=== PATIENT | male | born 1950 | race Caucasian/White ===

== ENCOUNTER 2019-09-01 16:19 | Inpatient (IN) | payer MEDICARE, MEDICAID ==
[~2019-09-01] VITALS: Ht 162.6 cm; Wt 72.6 kg
[2019-09-01 16:30] VITALS: BP 132/70
[2019-09-01] MEDS ORDERED: HYPROMELLOSE 0.5% 15 ML OPHTHALMIC SOLUTION OU PRN (18:30)
[2019-09-01] MEDS: LACTULOSE 20 GM/30 ML SOLUTION UDCUP PO SCH (21:29)
[2019-09-01] MEDS: PANTOPRAZOLE SODIUM 40 MG DR TABLET PO SCH (21:29)
[2019-09-01] MEDS: RIFAXIMIN 550 MG TABLET PO SCH (21:29)
[2019-09-01] MEDS: FUROSEMIDE 40 MG TABLET PO SCH (21:29)
[2019-09-01] MEDS ORDERED: ACETAMINOPHEN 325 MG TABLET PO PRN (22:30)
[2019-09-01 23:19] VITALS: BP 132/70
[2019-09-02] VITALS: BP 131/77
[2019-09-02 08:05] VITALS: BP 140/72
[2019-09-02 09:30] LABS: BASOPHILS % (AUTO) 1.1 % (0.0-2.0); EOSINOPHILS % (AUTO) 1.8 % (1.0-6.0); HEMATOCRIT 35.9 % (41-53); HEMOGLOBIN 11.8 g/dL (13.5-17.5); LYMPHOCYTES # (AUTO) 0.5 K/uL (1.0-4.8); MEAN CORPUSCULAR HEMOGLOBIN 29.2 pg (26.0-34.0); MEAN CORPUSCULAR HGB CONC 32.7 G/dL (31.0-37.0); MEAN CORPUSCULAR VOLUME 89 fL (80-100); MONOCYTES # (AUTO) 0.4 K/uL (0.1-1.0); MONOCYTES % (AUTO) 5.8 % (2.0-9.0); NEUTROPHILS # (AUTO) 5.3 K/uL (1.8-7.7); NEUTROPHILS % (AUTO) 83.3 % (40.0-70.0); PLATELET COUNT (AUTO) 213 K/uL (150-450); RED BLOOD CELL COUNT(AUTO) 4.02 MIL/uL (4.50-5.90); RED CELL DISTRIBUTION WIDTH 21.5 % (11.5-14.5)
[2019-09-02 09:51] LABS: ALANINE AMINOTRANSFERASE 22 U/L (12-78); ALBUMIN 2.5 g/dL (3.4-5.0); ALKALINE PHOSPHATASE 122 U/L (46-116); ANION GAP 9 mmol/L (8-16); ASPARTATE AMINOTRANSFERASE 24 U/L (15-37); BILIRUBIN,TOTAL 1.1 mg/dL (0.1-1.0); CALCIUM, TOTAL 8.6 mg/dL (8.8-10.5); CARBON DIOXIDE 27 mmol/L (22-29); CHLORIDE 108 mmol/L (98-107); GLUCOSE,RANDOM 102 mg/dL (70-110); POTASSIUM 3.6 mmol/L (3.5-5.1); SODIUM SERUM 144 mmol/L (136-145); TOTAL PROTEIN, SERUM 7.7 g/dL (6.4-8.2); UREA NITROGEN, BLOOD 13 mg/dL (7-18)
[2019-09-02 09:55] LABS: GLOMERULAR FILTR. RATE CALC > 60 mL/min (>60)
[2019-09-02] MEDS: RIFAXIMIN 550 MG TABLET PO SCH ×2 (10:48→21:35)
[2019-09-02] MEDS: FUROSEMIDE 40 MG TABLET PO SCH ×2 (10:48→21:39)
[2019-09-02] MEDS: PANTOPRAZOLE SODIUM 40 MG DR TABLET PO SCH ×2 (10:49→21:39)
[2019-09-02] MEDS: LACTULOSE 20 GM/30 ML SOLUTION UDCUP PO SCH ×3 (10:54→21:39)
[2019-09-02] MEDS: FOLIC ACID 1 MG TABLET PO SCH (11:20)
[2019-09-02] MEDS: THIAMINE HCL 100 MG TABLET PO SCH (11:20)
[2019-09-02] MEDS: POTASSIUM CHLORIDE 10 MEQ ER TABLET PO SCH (11:20)
[2019-09-02] MEDS: SPIRONOLACTONE 50 MG TABLET PO SCH (11:21)
[2019-09-02 15:00] VITALS: BP 145/74
[2019-09-02 21:34] VITALS: BP 141/76
[2019-09-03 01:08] VITALS: BP 141/77
[2019-09-03 07:30] VITALS: BP 122/59
[2019-09-03] MEDS: RIFAXIMIN 550 MG TABLET PO SCH ×2 (08:41→20:16)
[2019-09-03] MEDS: FUROSEMIDE 40 MG TABLET PO SCH ×2 (08:41→20:16)
[2019-09-03] MEDS: POTASSIUM CHLORIDE 10 MEQ ER TABLET PO SCH (08:41)
[2019-09-03] MEDS: SPIRONOLACTONE 50 MG TABLET PO SCH (08:41)
[2019-09-03] MEDS: LACTULOSE 20 GM/30 ML SOLUTION UDCUP PO SCH ×3 (08:41→20:16)
[2019-09-03] MEDS: FOLIC ACID 1 MG TABLET PO SCH (08:41)
[2019-09-03] MEDS: PANTOPRAZOLE SODIUM 40 MG DR TABLET PO SCH ×2 (08:41→20:16)
[2019-09-03] MEDS: THIAMINE HCL 100 MG TABLET PO SCH (08:41)
[2019-09-03 15:15] VITALS: BP 137/83
[2019-09-03 16:05] VITALS: BP 137/83
[2019-09-03 20:15] VITALS: BP 140/76
[2019-09-04] VITALS: BP 122/80
[2019-09-04 07:30] VITALS: BP 143/75
[2019-09-04] MEDS: THIAMINE HCL 100 MG TABLET PO SCH (07:53)
[2019-09-04] MEDS: POTASSIUM CHLORIDE 10 MEQ ER TABLET PO SCH (07:53)
[2019-09-04] MEDS: FUROSEMIDE 40 MG TABLET PO SCH ×2 (07:53→20:40)
[2019-09-04] MEDS: RIFAXIMIN 550 MG TABLET PO SCH ×2 (07:53→20:39)
[2019-09-04] MEDS: PANTOPRAZOLE SODIUM 40 MG DR TABLET PO SCH ×2 (07:53→20:39)
[2019-09-04] MEDS: FOLIC ACID 1 MG TABLET PO SCH (07:53)
[2019-09-04] MEDS: LACTULOSE 20 GM/30 ML SOLUTION UDCUP PO SCH ×3 (07:54→20:40)
[2019-09-04] MEDS: SPIRONOLACTONE 50 MG TABLET PO SCH (07:54)
[2019-09-04 16:05] VITALS: BP 150/77
[2019-09-04] MEDS: BENZOCAINE 10% 7 GM GEL TP SCH ×2 (16:17→20:39)
[2019-09-05 00:57] VITALS: BP 148/82
[2019-09-05 08:00] VITALS: BP 134/69
[2019-09-05] MEDS: THIAMINE HCL 100 MG TABLET PO SCH (09:00)
[2019-09-05] MEDS: FOLIC ACID 1 MG TABLET PO SCH (09:00)
[2019-09-05] MEDS: POTASSIUM CHLORIDE 10 MEQ ER TABLET PO SCH (09:00)
[2019-09-05] MEDS: LACTULOSE 20 GM/30 ML SOLUTION UDCUP PO SCH ×3 (09:00→20:09)
[2019-09-05] MEDS: PANTOPRAZOLE SODIUM 40 MG DR TABLET PO SCH ×2 (09:01→20:09)
[2019-09-05] MEDS: RIFAXIMIN 550 MG TABLET PO SCH ×2 (09:01→20:09)
[2019-09-05] MEDS: SPIRONOLACTONE 50 MG TABLET PO SCH (09:01)
[2019-09-05] MEDS: FUROSEMIDE 40 MG TABLET PO SCH ×2 (09:02→20:09)
[2019-09-05] MEDS: BENZOCAINE 10% 7 GM GEL TP SCH ×3 (09:02→21:13)
[2019-09-05 16:00] VITALS: BP 138/85
[2019-09-05] MEDS ORDERED: TAMSULOSIN HCL 0.4 MG CAPSULE PO SCH (21:00)
[2019-09-05] MEDS ORDERED: ASPI-728 PO (23:17)
[2019-09-05] MEDS ORDERED: FURO40 PO (23:29)
[2019-09-05] MEDS ORDERED: KDUR10 PO (23:30)
[2019-09-05] MEDS ORDERED: CARV6 PO (23:30)
[2019-09-05] MEDS ORDERED: LOVA-74 PO (23:32)
[2019-09-06] VITALS: BP 146/77
[2019-09-06 08:00] VITALS: BP 124/74
[2019-09-06] MEDS: SPIRONOLACTONE 50 MG TABLET PO SCH (08:23)
[2019-09-06] MEDS: RIFAXIMIN 550 MG TABLET PO SCH ×2 (08:23→20:41)
[2019-09-06] MEDS: THIAMINE HCL 100 MG TABLET PO SCH (08:23)
[2019-09-06] MEDS: PANTOPRAZOLE SODIUM 40 MG DR TABLET PO SCH ×2 (08:23→20:41)
[2019-09-06] MEDS: FOLIC ACID 1 MG TABLET PO SCH (08:23)
[2019-09-06] MEDS: FUROSEMIDE 40 MG TABLET PO SCH ×2 (08:23→20:41)
[2019-09-06] MEDS: POTASSIUM CHLORIDE 10 MEQ ER TABLET PO SCH (08:23)
[2019-09-06] MEDS: BENZOCAINE 10% 7 GM GEL TP SCH ×2 (08:24→17:23)
[2019-09-06] MEDS: LACTULOSE 20 GM/30 ML SOLUTION UDCUP PO SCH ×3 (08:24→20:40)
[2019-09-06] MEDS ORDERED: LOSA1TAB37 PO (12:33)
[2019-09-06] MEDS ORDERED: LOVA20 PO (12:33)
[2019-09-06 15:15] VITALS: BP 144/81
[2019-09-06 16:05] VITALS: BP 144/81
[2019-09-06] MEDS: CARBIDOPA/LEVODOPA 25-100 MG TABLET PO SCH ×2 (17:23→20:41)
[2019-09-06] MEDS: MELATONIN 3 MG TABLET PO PRN (20:41)
[2019-09-06] MEDS: TAMSULOSIN HCL 0.4 MG CAPSULE PO SCH (20:41)
[2019-09-07] VITALS: BP 125/72
[2019-09-07] MEDS: BENZOCAINE 10% 7 GM GEL TP SCH ×3 (05:54→16:50)
[2019-09-07 08:39] LABS: EOSINOPHILS % (AUTO) 2.1 % (1.0-6.0); HEMATOCRIT 37.3 % (41-53); HEMOGLOBIN 12.3 g/dL (13.5-17.5); LYMPHOCYTES # (AUTO) 0.5 K/uL (1.0-4.8); LYMPHOCYTES % (AUTO) 10.7 % (22.0-44.0); MEAN CORPUSCULAR HEMOGLOBIN 29.7 pg (26.0-34.0); MEAN CORPUSCULAR HGB CONC 32.9 G/dL (31.0-37.0); MEAN CORPUSCULAR VOLUME 90 fL (80-100); MONOCYTES # (AUTO) 0.4 K/uL (0.1-1.0); MONOCYTES % (AUTO) 7.6 % (2.0-9.0); NEUTROPHILS % (AUTO) 78.6 % (40.0-70.0); PLATELET COUNT (AUTO) 162 K/uL (150-450); RED BLOOD CELL COUNT(AUTO) 4.13 MIL/uL (4.50-5.90); RED CELL DISTRIBUTION WIDTH 23.5 % (11.5-14.5)
[2019-09-07 08:47] LABS: ANION GAP 13 mmol/L (8-16); CALCIUM, TOTAL 9.1 mg/dL (8.8-10.5); CARBON DIOXIDE 27 mmol/L (22-29); CHLORIDE 103 mmol/L (98-107); CREATININE 1.03 mg/dL (0.60-1.30); GLUCOSE,RANDOM 100 mg/dL (70-110); SODIUM SERUM 143 mmol/L (136-145); UREA NITROGEN, BLOOD 15 mg/dL (7-18)
[2019-09-07 08:49] LABS: GLOMERULAR FILTR. RATE CALC > 60 mL/min (>60)
[2019-09-07] MEDS ORDERED: POTASSIUM CHLORIDE 20 MEQ ER TABLET PO ONE ×2 (09:30→17:00)
[2019-09-07] MEDS: FUROSEMIDE 40 MG TABLET PO SCH ×2 (09:33→20:58)
[2019-09-07] MEDS: FOLIC ACID 1 MG TABLET PO SCH (09:34)
[2019-09-07] MEDS: PANTOPRAZOLE SODIUM 40 MG DR TABLET PO SCH ×2 (09:34→20:58)
[2019-09-07] MEDS: SPIRONOLACTONE 50 MG TABLET PO SCH (09:34)
[2019-09-07] MEDS: LACTULOSE 20 GM/30 ML SOLUTION UDCUP PO SCH ×3 (09:34→20:58)
[2019-09-07] MEDS: THIAMINE HCL 100 MG TABLET PO SCH (09:35)
[2019-09-07] MEDS: CARBIDOPA/LEVODOPA 25-100 MG TABLET PO SCH ×3 (09:35→20:58)
[2019-09-07] MEDS: POTASSIUM CHLORIDE 10 MEQ ER TABLET PO SCH (09:35)
[2019-09-07] MEDS: RIFAXIMIN 550 MG TABLET PO SCH ×2 (09:35→20:58)
[2019-09-07 10:21] VITALS: BP 127/65
[2019-09-07 15:00] VITALS: BP 153/63
[2019-09-07] MEDS: MELATONIN 3 MG TABLET PO PRN (20:58)
[2019-09-07] MEDS: TAMSULOSIN HCL 0.4 MG CAPSULE PO SCH (20:58)
[2019-09-08 00:30] VITALS: BP 139/74
[2019-09-08] MEDS: RIFAXIMIN 550 MG TABLET PO SCH ×2 (07:46→20:16)
[2019-09-08] MEDS: FUROSEMIDE 40 MG TABLET PO SCH ×2 (07:46→20:19)
[2019-09-08] MEDS: FOLIC ACID 1 MG TABLET PO SCH (07:46)
[2019-09-08] MEDS: THIAMINE HCL 100 MG TABLET PO SCH (07:46)
[2019-09-08] MEDS: CARBIDOPA/LEVODOPA 25-100 MG TABLET PO SCH ×3 (07:46→20:19)
[2019-09-08] MEDS: LACTULOSE 20 GM/30 ML SOLUTION UDCUP PO SCH ×3 (07:46→20:37)
[2019-09-08] MEDS: BENZOCAINE 10% 7 GM GEL TP SCH ×3 (07:46→16:28)
[2019-09-08] MEDS: SPIRONOLACTONE 50 MG TABLET PO SCH ×2 (07:47→10:14)
[2019-09-08] MEDS: POTASSIUM CHLORIDE 10 MEQ ER TABLET PO SCH (07:47)
[2019-09-08] MEDS: PANTOPRAZOLE SODIUM 40 MG DR TABLET PO SCH ×2 (07:47→20:19)
[2019-09-08 07:51] LABS: ALANINE AMINOTRANSFERASE 31 U/L (12-78); ALBUMIN 2.8 g/dL (3.4-5.0); ALKALINE PHOSPHATASE 139 U/L (46-116); ANION GAP 10 mmol/L (8-16); ASPARTATE AMINOTRANSFERASE 37 U/L (15-37); CALCIUM, TOTAL 8.6 mg/dL (8.8-10.5); CARBON DIOXIDE 27 mmol/L (22-29); CHLORIDE 104 mmol/L (98-107); CREATININE 1.04 mg/dL (0.60-1.30); GLUCOSE,RANDOM 101 mg/dL (70-110); POTASSIUM 3.3 mmol/L (3.5-5.1); SODIUM SERUM 141 mmol/L (136-145); TOTAL PROTEIN, SERUM 7.2 g/dL (6.4-8.2); UREA NITROGEN, BLOOD 12 mg/dL (7-18)
[2019-09-08 07:52] LABS: GLOMERULAR FILTR. RATE CALC > 60 mL/min (>60)
[2019-09-08 09:15] VITALS: BP 102/55
[2019-09-08 13:13] LABS: GLUCOMETER DEV NAME(LOC) 2WR.1C; GLUCOSE,POINT OF CARE 97 MG/DL (70-110)
[2019-09-08] MEDS ORDERED: POTASSIUM CHLORIDE 10 MEQ ER TABLET PO ONE (14:00)
[2019-09-08] MEDS ORDERED: MAGNESIUM SULFATE 2 GM/WATER 50 ML IV ONE (14:00)
[2019-09-08] MEDS ORDERED: SODIUM CHLORIDE 0.9% 100 ML ONE (14:25)
[2019-09-08 15:00] VITALS: BP 133/64
[2019-09-08] MEDS ORDERED: 0.9% SODIUM CHLORIDE 10 ML SYRINGE IVP SCH (16:00)
[2019-09-08] MEDS: MELATONIN 3 MG TABLET PO PRN (20:19)
[2019-09-08] MEDS: TAMSULOSIN HCL 0.4 MG CAPSULE PO SCH (20:19)
[2019-09-09 01:03] VITALS: BP 136/72
[2019-09-09] MEDS: BENZOCAINE 10% 7 GM GEL TP SCH ×3 (05:51→16:53)
[2019-09-09 07:30] VITALS: BP 144/75
[2019-09-09] MEDS: FOLIC ACID 1 MG TABLET PO SCH (08:17)
[2019-09-09] MEDS: RIFAXIMIN 550 MG TABLET PO SCH ×2 (08:19→22:23)
[2019-09-09] MEDS: POTASSIUM CHLORIDE 20 MEQ ER TABLET PO SCH (08:19)
[2019-09-09] MEDS: MAGNESIUM OXIDE 400 MG TABLET PO SCH ×2 (08:19→22:23)
[2019-09-09] MEDS: SPIRONOLACTONE 50 MG TABLET PO SCH (08:20)
[2019-09-09] MEDS: PANTOPRAZOLE SODIUM 40 MG DR TABLET PO SCH ×2 (08:20→22:23)
[2019-09-09] MEDS: THIAMINE HCL 100 MG TABLET PO SCH (08:20)
[2019-09-09] MEDS: CARBIDOPA/LEVODOPA 25-100 MG TABLET PO SCH ×3 (08:20→22:23)
[2019-09-09] MEDS: FUROSEMIDE 40 MG TABLET PO SCH ×2 (08:20→22:24)
[2019-09-09] MEDS: LACTULOSE 20 GM/30 ML SOLUTION UDCUP PO SCH ×3 (08:20→22:23)
[2019-09-09] MEDS ORDERED: POTASSIUM CHLORIDE 20 MEQ ER TABLET PO SCH (09:00)
[2019-09-09 16:49] VITALS: BP 155/77
[2019-09-09] MEDS ORDERED: MAGNESIUM OXIDE 400 MG TABLET PO SCH (21:00)
[2019-09-09] MEDS: TAMSULOSIN HCL 0.4 MG CAPSULE PO SCH (22:24)
[2019-09-09] MEDS: TraZODone HCL 50 MG TABLET PO SCH (22:24)
[2019-09-10] VITALS: BP 145/83
[2019-09-10 07:30] VITALS: BP 118/69
[2019-09-10] MEDS: MAGNESIUM OXIDE 400 MG TABLET PO SCH ×2 (08:06→20:38)
[2019-09-10] MEDS: THIAMINE HCL 100 MG TABLET PO SCH (08:06)
[2019-09-10] MEDS: LACTULOSE 20 GM/30 ML SOLUTION UDCUP PO SCH ×3 (08:06→20:38)
[2019-09-10] MEDS: SPIRONOLACTONE 50 MG TABLET PO SCH (08:06)
[2019-09-10] MEDS: FOLIC ACID 1 MG TABLET PO SCH (08:07)
[2019-09-10] MEDS: RIFAXIMIN 550 MG TABLET PO SCH ×2 (08:07→20:38)
[2019-09-10] MEDS: PANTOPRAZOLE SODIUM 40 MG DR TABLET PO SCH ×2 (08:07→20:38)
[2019-09-10] MEDS: BENZOCAINE 10% 7 GM GEL TP SCH ×3 (08:07→16:45)
[2019-09-10] MEDS: FUROSEMIDE 40 MG TABLET PO SCH ×2 (08:07→20:38)
[2019-09-10] MEDS: CARBIDOPA/LEVODOPA 25-100 MG TABLET PO SCH ×3 (08:07→20:38)
[2019-09-10] MEDS: POTASSIUM CHLORIDE 20 MEQ ER TABLET PO SCH (08:08)
[2019-09-10 16:53] VITALS: BP 137/74
[2019-09-10] MEDS: TraZODone HCL 50 MG TABLET PO SCH (20:38)
[2019-09-10] MEDS: TAMSULOSIN HCL 0.4 MG CAPSULE PO SCH (20:38)
[2019-09-11 00:18] VITALS: BP 136/73
[2019-09-11] MEDS: BENZOCAINE 10% 7 GM GEL TP SCH ×3 (06:07→16:00)
[2019-09-11 08:00] VITALS: BP 142/81
[2019-09-11] MEDS: MAGNESIUM OXIDE 400 MG TABLET PO SCH ×2 (09:24→20:36)
[2019-09-11] MEDS: SPIRONOLACTONE 50 MG TABLET PO SCH (09:25)
[2019-09-11] MEDS: THIAMINE HCL 100 MG TABLET PO SCH (09:25)
[2019-09-11] MEDS: FUROSEMIDE 40 MG TABLET PO SCH ×2 (09:25→20:36)
[2019-09-11] MEDS: POTASSIUM CHLORIDE 20 MEQ ER TABLET PO SCH (09:25)
[2019-09-11] MEDS: LACTULOSE 20 GM/30 ML SOLUTION UDCUP PO SCH ×3 (09:25→20:34)
[2019-09-11] MEDS: RIFAXIMIN 550 MG TABLET PO SCH ×2 (09:25→20:37)
[2019-09-11] MEDS: PANTOPRAZOLE SODIUM 40 MG DR TABLET PO SCH ×2 (09:25→20:35)
[2019-09-11] MEDS: CARBIDOPA/LEVODOPA 25-100 MG TABLET PO SCH ×3 (09:26→20:36)
[2019-09-11] MEDS: FOLIC ACID 1 MG TABLET PO SCH (09:26)
[2019-09-11 16:58] VITALS: BP 126/54
[2019-09-11] MEDS: TAMSULOSIN HCL 0.4 MG CAPSULE PO SCH (20:34)
[2019-09-11] MEDS: TraZODone HCL 50 MG TABLET PO SCH (20:36)
[2019-09-12 00:18] VITALS: BP 133/72
[2019-09-12] MEDS: BENZOCAINE 10% 7 GM GEL TP SCH ×3 (07:00→15:57)
[2019-09-12 08:00] VITALS: BP 129/72
[2019-09-12] MEDS: THIAMINE HCL 100 MG TABLET PO SCH (10:12)
[2019-09-12] MEDS: SPIRONOLACTONE 50 MG TABLET PO SCH (10:12)
[2019-09-12] MEDS: MAGNESIUM OXIDE 400 MG TABLET PO SCH ×2 (10:12→20:33)
[2019-09-12] MEDS: FOLIC ACID 1 MG TABLET PO SCH (10:12)
[2019-09-12] MEDS: RIFAXIMIN 550 MG TABLET PO SCH ×2 (10:12→20:33)
[2019-09-12] MEDS: CARBIDOPA/LEVODOPA 25-100 MG TABLET PO SCH ×3 (10:12→20:33)
[2019-09-12] MEDS: FUROSEMIDE 40 MG TABLET PO SCH ×2 (10:12→20:33)
[2019-09-12] MEDS: POTASSIUM CHLORIDE 20 MEQ ER TABLET PO SCH (10:12)
[2019-09-12] MEDS: PANTOPRAZOLE SODIUM 40 MG DR TABLET PO SCH ×2 (10:12→20:33)
[2019-09-12] MEDS: LACTULOSE 20 GM/30 ML SOLUTION UDCUP PO SCH ×3 (10:13→20:33)
[2019-09-12] MEDS: FINASTERIDE 5 MG TABLET PO SCH (12:15)
[2019-09-12 15:30] VITALS: BP 130/80
[2019-09-12] MEDS: TAMSULOSIN HCL 0.4 MG CAPSULE PO SCH (20:33)
[2019-09-12] MEDS: TraZODone HCL 50 MG TABLET PO SCH (20:33)
[2019-09-12 23:00] VITALS: BP 123/77
[2019-09-13] MEDS: BENZOCAINE 10% 7 GM GEL TP SCH ×3 (05:50→16:41)
[2019-09-13 07:05] VITALS: BP 119/72
[2019-09-13 07:17] LABS: ALANINE AMINOTRANSFERASE 36 U/L (12-78); ALBUMIN 3.5 g/dL (3.4-5.0); ALKALINE PHOSPHATASE 148 U/L (46-116); ANION GAP 7 mmol/L (8-16); ASPARTATE AMINOTRANSFERASE 44 U/L (15-37); CALCIUM, TOTAL 8.9 mg/dL (8.8-10.5); CARBON DIOXIDE 28 mmol/L (22-29); CHLORIDE 98 mmol/L (98-107); GLUCOSE,RANDOM 100 mg/dL (70-110); SODIUM SERUM 133 mmol/L (136-145); TOTAL PROTEIN, SERUM 7.5 g/dL (6.4-8.2); UREA NITROGEN, BLOOD 10 mg/dL (7-18)
[2019-09-13 07:18] LABS: GLOMERULAR FILTR. RATE CALC > 60 mL/min (>60)
[2019-09-13] MEDS: FINASTERIDE 5 MG TABLET PO SCH (07:49)
[2019-09-13] MEDS: LACTULOSE 20 GM/30 ML SOLUTION UDCUP PO SCH ×3 (07:49→20:13)
[2019-09-13] MEDS: POTASSIUM CHLORIDE 20 MEQ ER TABLET PO SCH (07:49)
[2019-09-13] MEDS: FUROSEMIDE 40 MG TABLET PO SCH ×2 (07:50→20:13)
[2019-09-13] MEDS: PANTOPRAZOLE SODIUM 40 MG DR TABLET PO SCH ×2 (07:50→20:14)
[2019-09-13] MEDS: MAGNESIUM OXIDE 400 MG TABLET PO SCH ×2 (07:50→20:14)
[2019-09-13] MEDS: SPIRONOLACTONE 50 MG TABLET PO SCH (07:50)
[2019-09-13] MEDS: FOLIC ACID 1 MG TABLET PO SCH (07:51)
[2019-09-13] MEDS: CARBIDOPA/LEVODOPA 25-100 MG TABLET PO SCH ×3 (07:51→20:14)
[2019-09-13] MEDS: THIAMINE HCL 100 MG TABLET PO SCH (07:51)
[2019-09-13] MEDS: RIFAXIMIN 550 MG TABLET PO SCH ×2 (07:51→20:14)
[2019-09-13 15:00] VITALS: BP 143/78
[2019-09-13 16:46] VITALS: BP 143/78
[2019-09-13] MEDS: TraZODone HCL 50 MG TABLET PO SCH (20:13)
[2019-09-13] MEDS: TAMSULOSIN HCL 0.4 MG CAPSULE PO SCH (20:14)
[2019-09-14 00:50] VITALS: BP 134/79
[2019-09-14] MEDS: BENZOCAINE 10% 7 GM GEL TP SCH ×3 (06:49→15:25)
[2019-09-14 07:00] VITALS: BP 144/81
[2019-09-14] MEDS: LACTULOSE 20 GM/30 ML SOLUTION UDCUP PO SCH ×3 (08:20→21:00)
[2019-09-14] MEDS: PANTOPRAZOLE SODIUM 40 MG DR TABLET PO SCH ×2 (08:20→22:27)
[2019-09-14] MEDS: POTASSIUM CHLORIDE 20 MEQ ER TABLET PO SCH (08:20)
[2019-09-14] MEDS: MAGNESIUM OXIDE 400 MG TABLET PO SCH ×2 (08:20→21:00)
[2019-09-14] MEDS: FINASTERIDE 5 MG TABLET PO SCH (08:20)
[2019-09-14] MEDS: FOLIC ACID 1 MG TABLET PO SCH (08:20)
[2019-09-14] MEDS: SPIRONOLACTONE 50 MG TABLET PO SCH (08:21)
[2019-09-14] MEDS: CARBIDOPA/LEVODOPA 25-100 MG TABLET PO SCH ×3 (08:21→21:00)
[2019-09-14] MEDS: THIAMINE HCL 100 MG TABLET PO SCH (08:21)
[2019-09-14] MEDS: RIFAXIMIN 550 MG TABLET PO SCH ×2 (08:21→21:00)
[2019-09-14] MEDS: FUROSEMIDE 40 MG TABLET PO SCH ×2 (08:21→21:00)
[2019-09-14 15:41] VITALS: BP 103/67
[2019-09-14 16:47] VITALS: BP 103/67
[2019-09-14] MEDS ORDERED: CARB-101 PO (17:12)
[2019-09-14] MEDS ORDERED: FINA-27 PO (17:13)
[2019-09-14] MEDS ORDERED: FOLI1 PO (17:15)
[2019-09-14] MEDS ORDERED: PANT40TA25 PO (17:20)
[2019-09-14] MEDS ORDERED: LACT30L PO (17:21)
[2019-09-14] MEDS ORDERED: RIFAX550 PO (17:21)
[2019-09-14] MEDS ORDERED: SPIR50 PO (17:22)
[2019-09-14] MEDS ORDERED: TAMS-13 PO (17:25)
[2019-09-14] MEDS ORDERED: THIA100T75 PO (17:26)
[2019-09-14] MEDS ORDERED: TRAZ-252 PO (17:34)
[2019-09-14] MEDS ORDERED: THIA100T92 PO (17:48)
[2019-09-14] MEDS: TAMSULOSIN HCL 0.4 MG CAPSULE PO SCH (21:00)
[2019-09-14] MEDS: TraZODone HCL 50 MG TABLET PO SCH (21:00)
[2019-09-15 06:30] VITALS: BP 129/69
[2019-09-15] MEDS: BENZOCAINE 10% 7 GM GEL TP SCH (07:00)
[2019-09-15 09:06] VITALS: BP 124/63
[2019-09-15] MEDS: RIFAXIMIN 550 MG TABLET PO SCH (09:33)
[2019-09-15] MEDS: POTASSIUM CHLORIDE 20 MEQ ER TABLET PO SCH (09:33)
[2019-09-15] MEDS: SPIRONOLACTONE 50 MG TABLET PO SCH (09:33)
[2019-09-15] MEDS: MAGNESIUM OXIDE 400 MG TABLET PO SCH (09:33)
[2019-09-15] MEDS: CARBIDOPA/LEVODOPA 25-100 MG TABLET PO SCH (09:34)
[2019-09-15] MEDS: FOLIC ACID 1 MG TABLET PO SCH (09:34)
[2019-09-15] MEDS: PANTOPRAZOLE SODIUM 40 MG DR TABLET PO SCH (09:34)
[2019-09-15] MEDS: FUROSEMIDE 40 MG TABLET PO SCH (09:34)
[2019-09-15] MEDS: THIAMINE HCL 100 MG TABLET PO SCH (09:35)
[2019-09-15] MEDS: FINASTERIDE 5 MG TABLET PO SCH (09:35)
[2019-09-15] MEDS: LACTULOSE 20 GM/30 ML SOLUTION UDCUP PO SCH (09:35)
[2019-09-15] MEDS ORDERED: MAGN200T5 PO (09:46)
== END 2019-09-15 10:10 | disposition home or self-care (01) | DRG 178 ==
LOC: EEVIPCON → 2WR 16:30
PROVIDERS: ADMIT Physical Medicine & Rehabilitation; ATTEND Physical Medicine & Rehabilitation
DX: J10.08 Influenza due to other identified influenza virus with other specified pneumonia (principal); K76.6 Portal hypertension; J15.5 Pneumonia due to Escherichia coli; K72.90 Hepatic failure, unspecified without coma; G20 Parkinson's disease; R13.10 Dysphagia, unspecified; D63.8 Anemia in other chronic diseases classified elsewhere; I10 Essential (primary) hypertension; I25.10 Atherosclerotic heart disease of native coronary artery without angina pectoris; K29.80 Duodenitis without bleeding; K70.30 Alcoholic cirrhosis of liver without ascites; N40.1 Benign prostatic hyperplasia with lower urinary tract symptoms; R33.8 Other retention of urine; Z96.653 Presence of artificial knee joint, bilateral; K29.90 Gastroduodenitis, unspecified, without bleeding; Z95.1 Presence of aortocoronary bypass graft
CPT/HCPCS: 74230; 83735; 87081; 92507; 92526; 92610; 97110; 97112; 97116; 97162; 97167; 97530; 97535; 99366; 99368; J3475; J7050